=== PATIENT | female | born 1945 | race Caucasian/White ===

== ENCOUNTER 2017-12-30 18:18 | Emergency (ER) | payer MEDICARE, BC ==
[2017-12-30] MEDS ORDERED: Methocarbamol 500 MG TAB ONE (19:38)
== END 2017-12-30 19:41 | disposition home or self-care (01) ==
LOC: SCSER 18:18
DX: M54.32 Sciatica, left side (principal); G20 Parkinson's disease; F17.210 Nicotine dependence, cigarettes, uncomplicated; M81.0 Age-related osteoporosis without current pathological fracture; M85.80 Other specified disorders of bone density and structure, unspecified site; Z79.899 Other long term (current) drug therapy
CPT/HCPCS: 99283

== ENCOUNTER 2018-05-11 07:56 | Outpatient (CLI) | payer MEDICARE, BC ==
--- NOTE | 2018-05-11 13:53 | NM ---
WHOLE BODY BONE SCAN WITH TRIPLE PHASE IMAGING OF THE KNEES: HISTORY: Primary osteoarthritis of the right knee. Instability of right knee joint. Exam requested to rule o ut loose hardware in the right knee. The patient also had a history of breast cancer in 2008. RADIOPHARMACEUTICAL: Technetium 99m MDP 32 millicuries injected intravenously. FINDINGS: No abnormal blood flow or blood pooling is seen in either knee joint. The delayed images demonstrate postop changes of right knee arthroplasty and mildly increased uptake in the left knee, consistent w ith degenerative changes. No evidence of infection or loosening is seen involving the right knee art hroplasty. There are multiple foci of increased uptake in the ribs bilaterally, some of which have a pattern of rib fractures. Increased uptake is seen in the upper thoracic and mid and lower lumbar spine. Trace r excretion through the kidneys is within normal limits. IMPRESSION: 1. No evidence of infection or loosening in the right knee arthroplasty. 2. Findings in some of the ribs are likely due to fractures. Other rib findings may either be due t o trauma or metastatic disease. 3. Findings in the thoracolumbar spine may either be due to degenerative changes or metastases. Dee luation with MRI of the thoracolumbar spine (with and without intravenous contrast) would be helpful. POS: [facility]
== END 2018-05-11 07:57 | disposition home or self-care (01) ==
LOC: NM 07:56
PROVIDERS: ATTEND Emergency Medicine Sports Medicine
DX: M17.11 Unilateral primary osteoarthritis, right knee (principal); M25.361 Other instability, right knee
CPT/HCPCS: 78315; A9503

== ENCOUNTER 2018-06-10 03:31 | Emergency (ER) | payer MEDICARE, BC ==
--- NOTE | 2018-06-10 08:41 | RAD ---
RADIOGRAPH ABDOMEN 2 VIEWS: Date: 06/10/18 Time: 0411 hours HISTORY: 72-year-old female for PEG tube placement check. Parkinson's disease. Tube placed in [place] on 06/09. Now pain at site of insertion. TECHNIQUE: KUB. Second KUB following PEG tube injection of 20 mL Gastrografin. FINDINGS: The bowel gas pattern is normal on the [employer] image. There is a percutaneous gastrostomy tube which en ters the left side of the stomach, loops in the fundus, then loops in the gastroduodenal junction, an d terminates at the junction between the second and third stages of the duodenum. Injected contrast m aterial fills the distal stomach and the duodenum, and the very proximal jejunum at the ligament of T keren. The stomach is decompressed. There is no extravasation. IMPRESSION: 1. Intraluminal position of the percutaneous gastrostomy tube confirmed, with distal tip in the duod enum. 2. No leakage. POS: [facility]
== END 2018-06-10 04:35 | disposition home or self-care (01) ==
LOC: SCSER 03:31
DX: G89.18 Other acute postprocedural pain (principal); G20 Parkinson's disease; F32.9 Major depressive disorder, single episode, unspecified; Z79.899 Other long term (current) drug therapy
CPT/HCPCS: 74019

== ENCOUNTER 2019-07-22 12:34 | Outpatient (CLI) | payer MEDICARE, BC ==
--- NOTE | 2019-07-22 14:23 | MRI ---
MRI BRAIN WITHOUT CONTRAST: INDICATION: Parkinson's disease. FINDINGS: There is enlargement of the ventricular system and moderate global atrophy. No acute territorial inf arction or mass effect. No midline shift. Mild chronic microvascular ischemic disease is present wi thin the cerebral white matter. There is pontine gliosis. IMPRESSION: 1. Ventriculomegaly and moderate global atrophy. 2. No acute territorial infarction or mass effect. 3. Microvascular ischemic disease of the cerebral white matter. POS: [facility]
--- NOTE | 2019-07-22 15:13 | MRI ---
MRI LUMBAR SPINE WITHOUT CONTRAST: INDICATION: Injury with back pain with radiation down the left lower extremity for the last 2-3 weeks. History o f spinal injections. History of a left breast mastectomy in 2007. COMPARISON: None. FINDINGS: There is levoscoliosis of the lumbar spine centered at the L3 vertebral level. There is mild retroli sthesis of L1 on L2, L2 on L3, and L3 on L4. There is anterolisthesis of L5 on S1. Conus is seen to terminate at approximately L1. The visualized aspects of the retroperitoneum and paravertebral soft tissues appear within normal chirinos its. No acute fracture is demonstrated. At the L5-S1 level, there is severe facet joint degenerative change, grade I anterolisthesis, and a b road-based disk bulge. Constellation of findings induces mild right and moderate to severe left neur al foraminal narrowing. At the L4-5 level, there is a broad-based bulge with ligamentum flavum hypertrophy and facet joint de generative change inducing mild central canal narrowing with moderate right and moderate to severe le ft neural foraminal narrowing. At L3-4, there is a broad-based disk bulge with facet hypertrophy and ligamentum flavum hypertrophy i nducing mild central canal narrowing with moderate bilateral neural foraminal narrowing. At L2-3, there is a broad-based bulge with facet hypertrophy and ligamentum flavum hypertrophy and a broad-based disk bulge inducing mild central canal narrowing with moderate right and mild left neural foraminal narrowing. At L1-2, there is a broad-based disk bulge with facet hypertrophy inducing mild bilateral neural fora martha narrowing and mild central canal narrowing. At T12-L1, there is no appreciable central canal or neural foraminal narrowing. IMPRESSION: Prominent multilevel spondylosis of the lumbar spine with multilevel central canal and neural foramin al narrowing as detailed above. POS: [facility]
== END 2019-07-22 12:35 | disposition home or self-care (01) ==
LOC: SCSMRI 12:34
PROVIDERS: ATTEND Physician Assistant
DX: M47.26 Other spondylosis with radiculopathy, lumbar region (principal); M48.061 Spinal stenosis, lumbar region without neurogenic claudication; G20 Parkinson's disease; M47.27 Other spondylosis with radiculopathy, lumbosacral region; M48.07 Spinal stenosis, lumbosacral region; I67.82 Cerebral ischemia
CPT/HCPCS: 70551; 72148

== ENCOUNTER 2019-09-23 08:42 | Outpatient (CLI) | payer MEDICARE, BC ==
--- NOTE | 2019-09-23 11:11 | MRI ---
MRI cervical spine noncontrast: DATE: 09/23/2019 HISTORY: 73-year-old female with cervicalgia COMPARISON: None FINDINGS: Vertebral body heights are maintained. Mild kyphosis. No Chiari I malformation. Mild Modic type I mar row changes of the endplates at C4-5, C5-6, and C6-C7, where there is moderate to severe disc space narrowing, endplate irregularity, and broad-based disc-osteophytic bar complex is that protrude into the anterior aspect of the spinal canal, abutting the spinal cord. Bilateral uncinate process osteophytes encroach upon bilateral neural foramina at multiple levels, but especially at C3-4, C4-5, C5-6, and C6-7. Severe right facet DJD at C3-4 and C7-T1. Moderate to severe right facet DJD at C4-5. Multilevel mild and moderate facet DJD on the left. No major subluxation. Developmentally small caliber spinal canal exacerbated by cervical spondylosis. C1-2: Mild degenerative pseudopannus posterior to odontoid process causes at least mild central spina l canal stenosis. C2-3: Mild to moderate central spinal canal stenosis, entirely on developmental basis. No significant degenerative disc changes. No neural foraminal stenosis. C3-4: Moderate central spinal canal stenosis due to mild ligamentum flavum thickening exacerbating th e developmentally small caliber spinal canal. Minimal broad-based disc-osteophyte complex anteriorly, shallow. Severe right neural foraminal stenosis. Moderate to severe left neural foraminal stenosis. Severe bony hypertrophy of right facet complex. Bone marrow edema of the right facet complex. Edema in the soft tissues around the right facet complex. C4-5: Indentation of the spinal cord by the broad-based shallow disc-osteophytic bar complex. Moderat e to severe central spinal canal stenosis. Severe bilateral neural foraminal stenosis, right worse than left. C5-6: Broad-based disc-osteophytic bar complex indents the spinal cord displacing it posteriorly agai nst thickened ligamentum flavum. Severe central spinal canal stenosis. Severe bilateral neural foraminal stenosis. C6-7: Severe central spinal canal stenosis (less severe than at C5-6). Severe bilateral neural forami nal stenosis. C7-T1: No significant central stenosis. Moderate to severe bilateral neural foraminal stenosis. IMPRESSION: 1. Cervical spondylosis, with moderate-severe degenerative disc disease at 3 levels, and high-grade f acet osteoarthrosis on the right. 2. Facet arthritis involving the right C3-4 facet complex, with bone marrow edema and edema in the so ft tissues immediately around the facet joint. 3. Multilevel severe central spinal canal stenosis and severe bilateral neural foraminal stenosis.
== END 2019-09-23 08:43 | disposition home or self-care (01) ==
LOC: SCSMRI 08:42
PROVIDERS: ATTEND Anesthesiology Pain Medicine
DX: M54.2 Cervicalgia (principal); M50.31 Other cervical disc degeneration, high cervical region; M47.812 Spondylosis without myelopathy or radiculopathy, cervical region; M46.92 Unspecified inflammatory spondylopathy, cervical region; M48.02 Spinal stenosis, cervical region; R60.0 Localized edema
CPT/HCPCS: 72141

== ENCOUNTER 2021-04-05 08:50 | Outpatient (CLI) | payer MEDICARE, BC | END 2021-04-05 08:51 | disposition home or self-care (01) | LOC: BICRAD 08:50 | PROVIDERS: ATTEND Nurse Practitioner Family | DX: M46.1 Sacroiliitis, not elsewhere classified (principal); M25.552 Pain in left hip | CPT/HCPCS: 72170 ==

== ENCOUNTER 2021-09-20 11:04 | Emergency (ER) | payer MEDICARE, BC ==
[2021-09-20 12:28] LABS: #Basophils 0.1 thou/uL (0.0-0.2); #Lymphocytes 0.9 thou/uL (1.20-3.40); #Monocytes 0.4 thou/uL (0.11-0.59); #Neutrophils 3.5 thou/uL (1.40-6.50); %Basophils 1.3 % (0.0-1.0); %Eosinophils 0.6 % (0.0-10.0); %Lymphocytes 18.8 % (21.0-51.0); %Monocytes 7.8 % (0.0-10.0); %Neutrophils 71.5 % (42.0-75.0); Hemoglobin 14.1 g/dL (12.0-16.0); Mean Corpuscular HGB CONC 34.5 g/dL (32.0-36.0); Mean Corpuscular Hemoglobin 35.1 pg (27.0-31.0); Mean Platelet Volume 8.4 fL (7.4-10.4); Platelet Count 136 thou/uL (130-400); RBC Distribution Width 11.6 % (11.5-14.5); Red Blood Cell (RBC) Count 4.01 mill/uL (4.20-5.40); White Blood Cell (WBC) Count 4.8 thou/uL (4.8-10.8)
[2021-09-20 12:59] LABS: ALT (SGPT) 9 U/L (8-55); AST (SGOT) 68 U/L (5-34); Albumin 3.7 g/dL (3.4-4.8); Alkaline Phosphatase 75 U/L (40-110); Anion Gap 15 mmol/L (10-20); BUN (Urea Nitrogen) 15 mg/dL (9.8-20.1); Bilirubin, Total 0.6 mg/dL (0.2-1.2); Calc. Creatinine Clearance 0 mL/min (70-130); Carbon Dioxide 22 mmol/L (23-31); Chloride 103 mmol/L (98-107); Globulin 2.9 g/dL (2.4-3.5); Glucose 90 mg/dL (83-110); Potassium 3.9 mmol/L (3.5-5.1); Protein, Total 6.6 g/dL (5.8-8.1); Sodium 136 mmol/L (136-145)
[2021-09-20] MEDS ORDERED: Albuterol 200 PUFF (6.7GM INHALER) ONE (15:18)
[2021-09-20 15:38] LABS: Bilirubin Negative (Negative); Blood, Urine Negative (Negative); Clarity Clear (Clear); Glucose, Urine (Dipstick) Normal (Negative); Ketone, Urine 10 mg/dL (Negative); Leukocyte 25 Leu/uL (Negative); Nitrite Negative (Negative); Protein, Urine (Dipstick) 20 mg/dL (Neg-Trace); RBC/HPF 0-3 HPF (0-3); Squamous Epithelial 0-3 HPF (0-3); Urobilinogen 3 mg/dL (Less than 2); pH, Urine 6.5 (5.0-9.0)
[2021-09-20 15:39] LABS: Bacteria/HPF 1+ HPF (None Seen); Specific Gravity, Urine 1.045 (1.002-1.036)
[2021-09-20 16:14] LABS: SARS-CoV-2 NAA Rapid Test DETECTED (NotDetected)
== END 2021-09-20 16:40 | disposition home or self-care (01) ==
LOC: ERS 11:04
DX: U07.1 COVID-19 (principal); J12.82 Pneumonia due to coronavirus disease 2019; Z79.899 Other long term (current) drug therapy; E78.5 Hyperlipidemia, unspecified; G20 Parkinson's disease; G47.00 Insomnia, unspecified; M19.90 Unspecified osteoarthritis, unspecified site
CPT/HCPCS: 0240U; 71045; 71275; 80053; 84484; 85025; 93005; 99285; 36415; 81003; 81015

== ENCOUNTER 2021-09-28 14:03 | Observation (INO) | payer MEDICARE, BC ==
[~2021-09-28 14:03] MED LIST: Iopamidol-370 76% 500 ML 1 ML ONE
[2021-09-28 14:49] LABS: #Eosinphils 0.1 thou/uL (0.0-0.7); #Monocytes 0.7 thou/uL (0.11-0.59); #Neutrophils 7.3 thou/uL (1.40-6.50); %Basophils 0.3 % (0.0-1.0); %Eosinophils 0.6 % (0.0-10.0); %Lymphocytes 10.7 % (21.0-51.0); %Monocytes 7.8 % (0.0-10.0); %Neutrophils 80.6 % (42.0-75.0); Hemoglobin 13.2 g/dL (12.0-16.0); Mean Corpuscular HGB CONC 34.4 g/dL (32.0-36.0); Mean Corpuscular Hemoglobin 35.7 pg (27.0-31.0); Mean Platelet Volume 7.8 fL (7.4-10.4); Platelet Count 186 thou/uL (130-400); RBC Distribution Width 11.5 % (11.5-14.5); Red Blood Cell (RBC) Count 3.68 mill/uL (4.20-5.40); White Blood Cell (WBC) Count 9.1 thou/uL (4.8-10.8)
[2021-09-28 15:10] LABS: ALT (SGPT) 7 U/L (8-55); AST (SGOT) 24 U/L (5-34); Albumin 3.5 g/dL (3.4-4.8); Alkaline Phosphatase 97 U/L (40-110); Anion Gap 13 mmol/L (10-20); BUN (Urea Nitrogen) 17 mg/dL (9.8-20.1); Bilirubin, Total 0.7 mg/dL (0.2-1.2); Calc. Creatinine Clearance 0 mL/min (70-130); Calcium 8.7 mg/dL (7.8-10.44); Carbon Dioxide 24 mmol/L (23-31); Chloride 102 mmol/L (98-107); Globulin 3.2 g/dL (2.4-3.5); Glucose 111 mg/dL (83-110); Lipase 12 U/L (8-78); Potassium 4.3 mmol/L (3.5-5.1); Protein, Total 6.7 g/dL (5.8-8.1); Sodium 135 mmol/L (136-145)
[2021-09-28] MEDS ORDERED: Morphine 4 MG/ML VIAL ONE (15:29)
[2021-09-28] MEDS ORDERED: Dexamethasone 10 MG/ML VIAL ONE (15:30)
[2021-09-28] MEDS ORDERED: cefTRIAXone\\ROCEPHIN 2 GM VIAL ONE (16:27)
[2021-09-28] MEDS ORDERED: Bisacodyl 5 MG TAB PO PRN (18:01)
[2021-09-28] MEDS ORDERED: Senokot S 8.6-50 MG TAB PO PRN (18:01)
[2021-09-28] MEDS ORDERED: HYDROcodone/Acetaminophen 10/325 mg Tablet PO PRN (18:01)
[2021-09-28] MEDS ORDERED: Guaifenesin DM 100-10/5 ML UDCUP PO PRN (18:01)
[2021-09-28] MEDS ORDERED: Ondansetron PF 4 MG/2 ML Vial IVP PRN (18:01)
[2021-09-28] MEDS ORDERED: HYDROcodone/Acetaminophen 5/325 mg Tablet PO PRN (18:01)
[2021-09-28] MEDS ORDERED: Enoxaparin Sodium 40 MG/0.4 ML SYRINGE SC SCH (18:15)
[2021-09-28] MEDS ORDERED: Melatonin 3 MG TAB PO PRN (18:34)
[2021-09-28] MEDS ORDERED: Albuterol Sulfate 2.5 mg/3 ml Neb NEB PRN (18:34)
[2021-09-28 18:53] LABS: Troponin I Less than 0.010 ng/mL (< 0.028)
[2021-09-28] MEDS ORDERED: Zinc Sulfate 220 MG CAP PO SCH (19:15)
[2021-09-28] MEDS ORDERED: Ascorbic Acid 500 mg Chewable Tablet PO SCH (19:15)
[2021-09-28] MEDS ORDERED: Cholecalciferol (Vitamin D3) 400 UNITS TAB PO SCH (19:15)
[2021-09-28] MEDS: Famotidine/PF 20 mg/2ml Vial SLOW IVP SCH (19:53)
[2021-09-28] MEDS: Azithromycin 500 MG in Sodium Chloride 0.9% 250 ML 250 ML IVPB SCH (20:07)
[2021-09-28 20:50] VITALS: BMI 26.6
[2021-09-28 21:16] LABS: Troponin I Less than 0.010 ng/mL (< 0.028)
[2021-09-29] MEDS ORDERED: Polyethylene Glycol 3350 17 GM Packet PO PRN (00:49)
[2021-09-29] MEDS: Acetaminophen 325 MG TAB PO PRN ×2 (00:51→19:45)
[2021-09-29] MEDS ORDERED: LEVODOPA PER TUBE SCH (01:15)
[2021-09-29] MEDS ORDERED: CARBIDOPA PER TUBE SCH (01:15)
[2021-09-29 06:15] LABS: ALT (SGPT) Less than 7 U/L (8-55); AST (SGOT) 19 U/L (5-34); Albumin 3.3 g/dL (3.4-4.8); Alkaline Phosphatase 91 U/L (40-110); Anion Gap 10 mmol/L (10-20); BUN (Urea Nitrogen) 15 mg/dL (9.8-20.1); Bilirubin, Total 0.5 mg/dL (0.2-1.2); Calc. Creatinine Clearance 87 mL/min (70-130); Carbon Dioxide 25 mmol/L (23-31); Chloride 104 mmol/L (98-107); Globulin 3.5 g/dL (2.4-3.5); Glucose 121 mg/dL (83-110); Potassium 4.1 mmol/L (3.5-5.1); Protein, Total 6.8 g/dL (5.8-8.1); Sodium 135 mmol/L (136-145)
[2021-09-29] MEDS: Multivitamin W/ Minerals 1 TAB PO SCH (08:35)
[2021-09-29] MEDS: Zinc Sulfate 220 MG CAP PO SCH (08:35)
[2021-09-29] MEDS: Escitalopram Oxalate 20 mg Tablet PO SCH (08:35)
[2021-09-29] MEDS: Pregabalin 25 MG CAP PO SCH (08:35)
[2021-09-29] MEDS: Ascorbic Acid 500 mg Chewable Tablet PO SCH (08:35)
[2021-09-29] MEDS: Calcium Carbonate 600 MG + Vit D TAB PO SCH (08:35)
[2021-09-29] MEDS: Cholecalciferol (Vitamin D3) 400 UNITS TAB PO SCH (08:36)
[2021-09-29] MEDS: Enoxaparin Sodium 40 MG/0.4 ML SYRINGE SC SCH (08:36)
[2021-09-29] MEDS: Dexamethasone 10 MG/ML VIAL SLOW IVP SCH (08:37)
[2021-09-29] MEDS ORDERED: Glucosamine/Msm/Chondroitin A [Glucosamine Chondroitin Msm] PO SCH (09:00)
[2021-09-29] MEDS ORDERED: SAFINAMIDE MESYLATE 100 MG PO SCH (09:00)
[2021-09-29] MEDS ORDERED: traMADol HCl 50 MG TAB PO PRN (09:45)
[2021-09-29] MEDS: Famotidine/PF 20 mg/2ml Vial SLOW IVP SCH ×2 (10:43→20:35)
[2021-09-29] MEDS ORDERED: Naproxen 500 MG TAB PO SCH (14:45)
[2021-09-29] MEDS ORDERED: cefTRIAXone\\ROCEPHIN 2 GM in Sodium Chloride 0.9% 100 ML IVPB SCH (16:00)
[2021-09-29 17:47] LABS: #Lymphocytes 0.8 thou/uL (1.20-3.40); #Monocytes 0.4 thou/uL (0.11-0.59); #Neutrophils 8.4 thou/uL (1.40-6.50); %Basophils 0.1 % (0.0-1.0); %Eosinophils 0.1 % (0.0-10.0); %Monocytes 3.9 % (0.0-10.0); %Neutrophils 87.9 % (42.0-75.0); Hemoglobin 13.9 g/dL (12.0-16.0); Mean Corpuscular HGB CONC 35.1 g/dL (32.0-36.0); Mean Corpuscular Hemoglobin 36.1 pg (27.0-31.0); Mean Platelet Volume 7.9 fL (7.4-10.4); Platelet Count 255 thou/uL (130-400); RBC Distribution Width 11.6 % (11.5-14.5); Red Blood Cell (RBC) Count 3.86 mill/uL (4.20-5.40); White Blood Cell (WBC) Count 9.6 thou/uL (4.8-10.8)
[2021-09-29] MEDS: Azithromycin 500 MG in Sodium Chloride 0.9% 250 ML 250 ML IVPB SCH (19:42)
[2021-09-29] MEDS ORDERED: Albuterol 200 PUFF (6.7GM INHALER) INH PRN (20:00)
[2021-09-29] MEDS: Naproxen 500 MG TAB PO SCH (20:36)
[2021-09-29] MEDS ORDERED: Melatonin 3 MG TAB PO SCH (21:00)
[2021-09-29] MEDS ORDERED: Pregabalin 50 MG CAP PO SCH (21:00)
[2021-09-29] MEDS: Albuterol 200 PUFF (6.7GM INHALER) INH SCH (23:08)
[2021-09-30] MEDS: Albuterol 200 PUFF (6.7GM INHALER) INH SCH ×3 (02:40→10:48)
[2021-09-30 08:22] VITALS: BP 134/63; TEMP 97.9
[2021-09-30] MEDS: Calcium Carbonate 600 MG + Vit D TAB PO SCH (08:46)
[2021-09-30] MEDS: Zinc Sulfate 220 MG CAP PO SCH (08:46)
[2021-09-30] MEDS: Naproxen 500 MG TAB PO SCH (08:46)
[2021-09-30] MEDS: Ascorbic Acid 500 mg Chewable Tablet PO SCH (08:48)
[2021-09-30] MEDS: Pregabalin 25 MG CAP PO SCH (08:48)
[2021-09-30] MEDS: Dexamethasone 10 MG/ML VIAL SLOW IVP SCH (08:49)
[2021-09-30] MEDS: Famotidine/PF 20 mg/2ml Vial SLOW IVP SCH (08:49)
[2021-09-30] MEDS: Multivitamin W/ Minerals 1 TAB PO SCH (08:50)
[2021-09-30] MEDS: Enoxaparin Sodium 40 MG/0.4 ML SYRINGE SC SCH (08:51)
[2021-09-30] MEDS: Cholecalciferol (Vitamin D3) 400 UNITS TAB PO SCH (08:52)
[2021-09-30] MEDS: Acetaminophen 325 MG TAB PO PRN (08:57)
[2021-09-30] MEDS: Escitalopram Oxalate 20 mg Tablet PO SCH (09:37)
[2021-10-01] MEDS ORDERED: FLU VACC QS2021-22(65YR UP)/PF 240 MCG/0.7 ML SYRINGE IM ONE (09:00)
== END 2021-09-30 13:57 | disposition home or self-care (01) ==
LOC: ERS 14:03 → 2SW 17:10
PROVIDERS: ADMIT Internal Medicine; ATTEND Internal Medicine
DX: U07.1 COVID-19 (principal); J12.82 Pneumonia due to coronavirus disease 2019; J96.01 Acute respiratory failure with hypoxia; R07.81 Pleurodynia; G20 Parkinson's disease; R33.8 Other retention of urine; G89.4 Chronic pain syndrome; M25.512 Pain in left shoulder; E78.5 Hyperlipidemia, unspecified; I70.0 Atherosclerosis of aorta; M19.90 Unspecified osteoarthritis, unspecified site; G47.00 Insomnia, unspecified; I08.1 Rheumatic disorders of both mitral and tricuspid valves; Z85.3 Personal history of malignant neoplasm of breast; Z79.899 Other long term (current) drug therapy; Z88.2 Allergy status to sulfonamides
CPT/HCPCS: 36415; 36416; 71045; 71275; 80053; 83605; 83690; 83880; 84484; 85025; 87040; 93005; 93306; 96365; 96367; 96372; 96375; 96376; G0378; J0456; J0696; J1100; J1650; J2270; J3490; J7050; Q9967; S0028

== ENCOUNTER 2021-10-15 09:52 | Outpatient (CLI) | payer MEDICARE, BC ==
[2021-10-15 17:46] LABS: SARS-CoV-2 PCR by NAA Not Detected (NotDetected)
== END 2021-10-15 09:53 | disposition home or self-care (01) ==
LOC: LABBT 09:52
PROVIDERS: ATTEND Family Medicine
DX: Z01.812 Encounter for preprocedural laboratory examination (principal); Z20.822 Contact with and (suspected) exposure to COVID-19
CPT/HCPCS: U0003; U0005

== ENCOUNTER 2021-10-17 10:46 | Outpatient (CLI) | payer MEDICARE, BC | END 2021-10-17 10:47 | disposition home or self-care (01) | PROVIDERS: ATTEND Internal Medicine | DX: G20 Parkinson's disease (principal); R13.10 Dysphagia, unspecified; M47.812 Spondylosis without myelopathy or radiculopathy, cervical region; M43.12 Spondylolisthesis, cervical region | CPT/HCPCS: 74230 ==

== ENCOUNTER 2021-10-29 08:39 | Outpatient (CLI) | payer MEDICARE, BC | END 2021-10-29 08:40 | disposition home or self-care (01) | LOC: MRI 08:39 | PROVIDERS: ATTEND Nurse Practitioner Family | DX: M54.6 Pain in thoracic spine (principal); M51.24 Other intervertebral disc displacement, thoracic region; M43.8X4 Other specified deforming dorsopathies, thoracic region; Z98.890 Other specified postprocedural states | CPT/HCPCS: 72146 ==

== ENCOUNTER 2021-12-20 10:16 | Emergency (ER) | payer OTHER, MEDICARE, BC ==
[2021-12-20 11:16] LABS: #Eosinphils 0.1 thou/uL (0.0-0.7); #Lymphocytes 0.8 thou/uL (1.20-3.40); #Monocytes 0.3 thou/uL (0.11-0.59); #Neutrophils 3.3 thou/uL (1.40-6.50); %Basophils 0.5 % (0.0-1.0); %Lymphocytes 17.8 % (21.0-51.0); %Neutrophils 72.7 % (42.0-75.0); Hemoglobin 12.3 g/dL (12.0-16.0); Mean Corpuscular HGB CONC 32.2 g/dL (32.0-36.0); Mean Platelet Volume 7.8 fL (7.4-10.4); Platelet Count 163 thou/uL (130-400); RBC Distribution Width 11.7 % (11.5-14.5); Red Blood Cell (RBC) Count 3.51 mill/uL (4.20-5.40); White Blood Cell (WBC) Count 4.6 thou/uL (4.8-10.8)
[2021-12-20] MEDS ORDERED: Acetaminophen 500 MG TAB ONE ×2 (11:26→11:28)
[2021-12-20 11:30] LABS: ALT (SGPT) Less than 7 U/L (8-55); AST (SGOT) 20 U/L (5-34); Alkaline Phosphatase 64 U/L (40-110); Anion Gap 16 mmol/L (10-20); BUN (Urea Nitrogen) 16 mg/dL (9.8-20.1); Bilirubin, Total 0.4 mg/dL (0.2-1.2); Calc. Creatinine Clearance 0 mL/min (70-130); Calcium 8.9 mg/dL (7.8-10.44); Carbon Dioxide 24 mmol/L (23-31); Chloride 105 mmol/L (98-107); Globulin 2.7 g/dL (2.4-3.5); Glucose 81 mg/dL (83-110); Potassium 3.7 mmol/L (3.5-5.1); Protein, Total 6.7 g/dL (5.8-8.1); Sodium 141 mmol/L (136-145)
[2021-12-20 11:50] LABS: Band 1 % (5-11); Eosinophils 5 % (0-10); Lymphocytes 22 % (21-51); MDiff Complete? YES; Macrocytosis SLIGHT = 6-15 cells (100X) (0-5/hpf); Monocytes 6 % (0-10); Neutrophil 65 % (42-75); Platelet Morphology Comment Appears Adequate; Polychromasia SLIGHT = 2-3 cells (100X) (0-2/hpf)
[2021-12-20 12:38] LABS: Bilirubin Negative (Negative); Blood, Urine Negative (Negative); Clarity Clear (Clear); Glucose, Urine (Dipstick) Normal (Negative); Ketone, Urine Negative (Negative); Leukocyte Negative Leu/uL (Negative); Nitrite Negative (Negative); Protein, Urine (Dipstick) Negative (Neg-Trace); Specific Gravity, Urine 1.014 (1.002-1.036); Urobilinogen Normal mg/dL (Less than 2)
== END 2021-12-20 13:15 | disposition home or self-care (01) ==
LOC: ERS 10:16
DX: S09.90XA Unspecified injury of head, initial encounter (principal); E78.5 Hyperlipidemia, unspecified; M19.90 Unspecified osteoarthritis, unspecified site; G47.00 Insomnia, unspecified; G20 Parkinson's disease; M85.80 Other specified disorders of bone density and structure, unspecified site; W01.198A Fall on same level from slipping, tripping and stumbling with subsequent striking against other object, initial encounter; Z79.899 Other long term (current) drug therapy
CPT/HCPCS: 36415; 70450; 71045; 72125; 80053; 81003; 84484; 85025; 93005

== ENCOUNTER 2022-08-19 11:58 | Emergency (ER) | payer MEDICARE, BC | END 2022-08-19 14:10 | disposition home or self-care (01) | LOC: ERS 11:58 | DX: S00.03XA Contusion of scalp, initial encounter (principal); E78.5 Hyperlipidemia, unspecified; G47.00 Insomnia, unspecified; G20 Parkinson's disease; M19.90 Unspecified osteoarthritis, unspecified site; W18.09XA Striking against other object with subsequent fall, initial encounter; Z85.3 Personal history of malignant neoplasm of breast; Z79.899 Other long term (current) drug therapy | CPT/HCPCS: 70450; 72125 ==

== ENCOUNTER 2022-09-14 17:43 | Inpatient (IN) | payer MEDICARE, BC ==
[2022-09-14] MEDS ORDERED: Ketorolac Tromethamine 30 MG/ML VIAL ONE (18:18)
[2022-09-14] MEDS ORDERED: Ondansetron PF 4 MG/2 ML Vial ONE (18:18)
[2022-09-14 18:35] LABS: #Lymphocytes 0.8 thou/uL (1.20-3.40); #Monocytes 0.3 thou/uL (0.11-0.59); #Neutrophils 6.7 thou/uL (1.40-6.50); %Basophils 0.4 % (0.0-1.0); %Eosinophils 0.6 % (0.0-10.0); %Lymphocytes 9.6 % (21.0-51.0); %Monocytes 3.7 % (0.0-10.0); %Neutrophils 85.7 % (42.0-75.0); Hemoglobin 12.3 g/dL (12.0-16.0); Mean Corpuscular HGB CONC 33.8 g/dL (32.0-36.0); Mean Corpuscular Hemoglobin 36.8 pg (27.0-31.0); Mean Platelet Volume 8.1 fL (7.4-10.4); Platelet Count 166 10x3/uL (130-400); RBC Distribution Width 11.7 % (11.5-14.5); Red Blood Cell (RBC) Count 3.34 mill/uL (4.20-5.40); White Blood Cell (WBC) Count 7.8 10x3/uL (4.8-10.8)
[2022-09-14 18:47] LABS: ALT (SGPT) 7 U/L (8-55); AST (SGOT) 26 U/L (5-34); Albumin 4.4 g/dL (3.4-4.8); Alkaline Phosphatase 76 U/L (40-110); Anion Gap 13 mmol/L (10-20); BUN (Urea Nitrogen) 12 mg/dL (9.8-20.1); Bilirubin, Total 0.9 mg/dL (0.2-1.2); Calc. Creatinine Clearance 0 mL/min (70-130); Calcium 9.8 mg/dL (7.8-10.44); Carbon Dioxide 31 mmol/L (23-31); Chloride 100 mmol/L (98-107); Estimated GFR 78; Glucose 121 mg/dL (83-110); Lipase 4 U/L (8-78); Potassium 3.9 mmol/L (3.5-5.1); Protein, Total 7.4 g/dL (5.8-8.1); Sodium 140 mmol/L (136-145)
[2022-09-14 18:57] LABS: MDiff Complete? YES; Macrocytosis SLIGHT = 6-15 cells (100X) (0-5/hpf); Platelet Morphology Comment Appears Adequate
[2022-09-14] MEDS ORDERED: HYDROcodone/Acetaminophen 5/325 mg Tablet PO PRN (21:54)
[2022-09-14] MEDS ORDERED: Acetaminophen 325 MG TAB PO PRN (21:54)
[2022-09-14] MEDS ORDERED: Ondansetron ODT 4 MG TAB PO PRN (21:54)
[2022-09-14] MEDS ORDERED: Hydrochlorothiazide 25 MG TAB PO PRN (21:56)
[2022-09-14] MEDS ORDERED: Enoxaparin Sodium 40 MG/0.4 ML SYRINGE SC SCH (22:00)
[2022-09-14] MEDS ORDERED: Loratadine 10 MG TAB PO PRN (22:05)
[2022-09-14] MEDS ORDERED: Artificial Tear Sol 15 ML BOT EA EYE PRN (22:06)
[2022-09-14 22:47] VITALS: BMI 24.9
[2022-09-14] MEDS: D5 1/2 NS w/20 mEq KCL 1,000 ML IV SCH (22:52)
[2022-09-15] MEDS ORDERED: LEVODOPA PER TUBE SCH (04:00)
[2022-09-15] MEDS ORDERED: CARBIDOPA PER TUBE SCH (04:00)
[2022-09-15 06:25] LABS: #Eosinphils 0.1 thou/uL (0.0-0.7); #Lymphocytes 1.7 thou/uL (1.20-3.40); #Monocytes 0.4 thou/uL (0.11-0.59); %Basophils 0.5 % (0.0-1.0); %Eosinophils 1.6 % (0.0-10.0); %Lymphocytes 32.5 % (21.0-51.0); %Monocytes 7.2 % (0.0-10.0); %Neutrophils 58.2 % (42.0-75.0); Hemoglobin 10.8 g/dL (12.0-16.0); Mean Corpuscular HGB CONC 33.3 g/dL (32.0-36.0); Mean Corpuscular Hemoglobin 36.3 pg (27.0-31.0); Mean Platelet Volume 8.2 fL (7.4-10.4); Platelet Count 154 10x3/uL (130-400); RBC Distribution Width 11.6 % (11.5-14.5); Red Blood Cell (RBC) Count 2.97 mill/uL (4.20-5.40); White Blood Cell (WBC) Count 5.1 10x3/uL (4.8-10.8)
[2022-09-15 06:41] LABS: Anion Gap 11 mmol/L (10-20); BUN (Urea Nitrogen) 12 mg/dL (9.8-20.1); Calc. Creatinine Clearance 72 mL/min (70-130); Calcium 8.5 mg/dL (7.8-10.44); Carbon Dioxide 25 mmol/L (23-31); Chloride 106 mmol/L (98-107); Estimated GFR 91; Glucose 95 mg/dL (83-110); Potassium 3.8 mmol/L (3.5-5.1); Sodium 138 mmol/L (136-145)
[2022-09-15 06:44] LABS: SARS-CoV-2 NAA Rapid Test Not Detected (NotDetected)
[2022-09-15] MEDS: Calcium Carbonate + Vit D 250 MG TAB PO SCH (08:20)
[2022-09-15] MEDS: Escitalopram Oxalate 20 mg Tablet PO SCH (08:21)
[2022-09-15] MEDS: Famotidine 20 MG TAB PO SCH ×2 (08:21→21:00)
[2022-09-15] MEDS: Pregabalin 25 MG CAP PO SCH (08:21)
[2022-09-15] MEDS: D5 1/2 NS w/20 mEq KCL 1,000 ML IV SCH (13:12)
[2022-09-15 20:06] VITALS: TEMP 98.3
[2022-09-15] MEDS ORDERED: diphenhydrAMINE 50 MG CAP PO SCH (21:00)
[2022-09-15] MEDS ORDERED: Pregabalin 50 MG CAP PO SCH (21:00)
[2022-09-15] MEDS ORDERED: Melatonin 3 MG TAB PO SCH (21:00)
[2022-09-15] MEDS: Metamucil PACK PO SCH (21:10)
[2022-09-16 06:45] LABS: #Eosinphils 0.1 thou/uL (0.0-0.7); #Lymphocytes 1.3 thou/uL (1.20-3.40); #Monocytes 0.4 thou/uL (0.11-0.59); #Neutrophils 2.1 thou/uL (1.40-6.50); %Basophils 0.4 % (0.0-1.0); %Eosinophils 1.9 % (0.0-10.0); %Neutrophils 54.8 % (42.0-75.0); Hemoglobin 11.4 g/dL (12.0-16.0); Mean Corpuscular HGB CONC 33.3 g/dL (32.0-36.0); Mean Corpuscular Hemoglobin 36.5 pg (27.0-31.0); Mean Platelet Volume 7.9 fL (7.4-10.4); Platelet Count 144 10x3/uL (130-400); RBC Distribution Width 11.7 % (11.5-14.5); Red Blood Cell (RBC) Count 3.11 mill/uL (4.20-5.40); White Blood Cell (WBC) Count 3.9 10x3/uL (4.8-10.8)
[2022-09-16] MEDS: Pregabalin 25 MG CAP PO SCH (08:27)
[2022-09-16] MEDS: Calcium Carbonate + Vit D 250 MG TAB PO SCH (08:27)
[2022-09-16] MEDS: Escitalopram Oxalate 20 mg Tablet PO SCH (08:28)
[2022-09-16] MEDS: Famotidine 20 MG TAB PO SCH (08:28)
[2022-09-16] MEDS: Metamucil PACK PO SCH (08:29)
[2022-09-16 08:37] VITALS: BP 145/83
[2022-09-16] MEDS ORDERED: SAFINAMIDE MESYLATE 100 MG PO SCH (09:00)
[2022-09-16] MEDS ORDERED: Multivit, Therapeutic 1 TAB PO SCH (09:00)
[2022-09-16] MEDS ORDERED: Estradiol 0.01% Vaginal Cream 42.5 gm Tube VAG SCH (09:00)
== END 2022-09-16 12:42 | disposition home or self-care (01) | DRG 863 ==
LOC: ERS 17:43 → T4-B 20:29 → OBSVTOIN 09-15 11:44
PROVIDERS: ADMIT Family Medicine; ATTEND Family Medicine
DX: T81.49XA Infection following a procedure, other surgical site, initial encounter (principal); L03.311 Cellulitis of abdominal wall; K56.609 Unspecified intestinal obstruction, unspecified as to partial versus complete obstruction; Z20.822 Contact with and (suspected) exposure to COVID-19; G20 Parkinson's disease; Y83.8 Other surgical procedures as the cause of abnormal reaction of the patient, or of later complication, without mention of misadventure at the time of the procedure; M19.90 Unspecified osteoarthritis, unspecified site; G89.29 Other chronic pain; Z93.4 Other artificial openings of gastrointestinal tract status; Z85.3 Personal history of malignant neoplasm of breast; Z88.2 Allergy status to sulfonamides; Z79.899 Other long term (current) drug therapy
CPT/HCPCS: 36415; 74177; 80048; 80053; 83690; 85025; 87070; 87205; 87324; 87449; 96374; 96375; J1650; J1885; J1956; J2405; J3480; Q9967; U0002

== ENCOUNTER 2022-10-03 21:46 | Emergency (ER) | payer MEDICARE, BC ==
[2022-10-03] MEDS ORDERED: HYDROcodone/Acetaminophen 10/325 mg Tablet ONE (22:47)
== END 2022-10-04 01:16 | disposition home or self-care (01) ==
LOC: ERS 21:46
DX: M79.601 Pain in right arm (principal); E78.5 Hyperlipidemia, unspecified; W18.30XA Fall on same level, unspecified, initial encounter

== ENCOUNTER 2022-12-28 13:16 | Inpatient (IN) | payer MEDICARE, BC ==
[2022-12-28 14:02] LABS: #Eosinphils 0.1 thou/uL (0.0-0.7); #Lymphocytes 0.9 thou/uL (1.20-3.40); #Monocytes 0.6 thou/uL (0.11-0.59); #Neutrophils 10.1 thou/uL (1.40-6.50); %Basophils 0.2 % (0.0-1.0); %Eosinophils 0.6 % (0.0-10.0); %Lymphocytes 7.8 % (21.0-51.0); %Monocytes 4.8 % (0.0-10.0); %Neutrophils 86.5 % (42.0-75.0); Hemoglobin 12.6 g/dL (12.0-16.0); Mean Corpuscular HGB CONC 33.7 g/dL (32.0-36.0); Mean Corpuscular Hemoglobin 36.1 pg (27.0-31.0); Mean Platelet Volume 8.1 fL (7.4-10.4); Platelet Count 196 10x3/uL (130-400); RBC Distribution Width 11.5 % (11.5-14.5); Red Blood Cell (RBC) Count 3.49 mill/uL (4.20-5.40); White Blood Cell (WBC) Count 11.7 10x3/uL (4.8-10.8)
[2022-12-28 14:14] LABS: ALT (SGPT) Less than 7 U/L (8-55); AST (SGOT) 20 U/L (5-34); Albumin 4.2 g/dL (3.4-4.8); Alkaline Phosphatase 79 U/L (40-110); Anion Gap 13 mmol/L (10-20); BUN (Urea Nitrogen) 17 mg/dL (9.8-20.1); Bilirubin, Total 0.6 mg/dL (0.2-1.2); Calc. Creatinine Clearance 0 mL/min (70-130); Calcium 9.3 mg/dL (7.8-10.44); Carbon Dioxide 25 mmol/L (23-31); Chloride 102 mmol/L (98-107); Estimated GFR 84; Globulin 3.3 g/dL (2.4-3.5); Glucose 95 mg/dL (83-110); Protein, Total 7.5 g/dL (5.8-8.1); Sodium 136 mmol/L (136-145)
[2022-12-28 14:20] LABS: MDiff Complete? YES; Macrocytosis SLIGHT = 6-15 cells (100X) (0-5/hpf); Platelet Morphology Comment Appears Adequate
[2022-12-28] MEDS ORDERED: Acetaminophen 500 MG TAB ONE (14:58)
[2022-12-28] MEDS ORDERED: Fentanyl 100 MCG/2 ML VIAL ONE (14:58)
[2022-12-28] MEDS ORDERED: Bupivacaine 0.25% 10 ML VIAL ONE (14:58)
[2022-12-28] MEDS ORDERED: Ondansetron ODT 4 MG TAB PO PRN (16:10)
[2022-12-28] MEDS ORDERED: Ondansetron PF 4 MG/2 ML Vial IVP PRN (16:10)
[2022-12-28] MEDS ORDERED: Sodium Chloride 0.9% 1,000 ML IV SCH (16:15)
[2022-12-28 18:08] VITALS: BMI 24.6
[2022-12-28] MEDS ORDERED: Vancomycin 1.5 GRAM/300 ML BAG 1.5 GM in Premix Bag 1 BAG IVPB SCH (19:30)
[2022-12-28] MEDS ORDERED: Cefepime 1 GM in Sodium Chloride 0.9% 100 ML IVPB SCH (20:00)
[2022-12-28] MEDS ORDERED: Cefepime 2 GM in Sodium Chloride 0.9% 100 ML IVPB SCH (21:00)
[2022-12-28] MEDS ORDERED: Vancomycin 1 GM in Premix Bag 1 BAG IVPB SCH (21:00)
[2022-12-28] MEDS: Cefepime 1 GM in Sodium Chloride 0.9% 100 ML IVPB SCH (21:58)
[2022-12-28] MEDS: Acetaminophen 325 MG TAB PO PRN (23:31)
[2022-12-29] MEDS: Acetaminophen 325 MG TAB PO PRN ×2 (06:48→20:44)
[2022-12-29 08:21] LABS: #Eosinphils 0.1 thou/uL (0.0-0.7); #Lymphocytes 0.8 thou/uL (1.20-3.40); #Monocytes 0.6 thou/uL (0.11-0.59); #Neutrophils 7.5 thou/uL (1.40-6.50); %Basophils 0.2 % (0.0-1.0); %Eosinophils 0.8 % (0.0-10.0); %Monocytes 6.7 % (0.0-10.0); %Neutrophils 83.4 % (42.0-75.0); Hemoglobin 10.8 g/dL (12.0-16.0); Mean Corpuscular HGB CONC 33.5 g/dL (32.0-36.0); Mean Platelet Volume 8.4 fL (7.4-10.4); Platelet Count 148 10x3/uL (130-400); RBC Distribution Width 11.5 % (11.5-14.5)
[2022-12-29 08:45] LABS: Anion Gap 13 mmol/L (10-20); BUN (Urea Nitrogen) 11 mg/dL (9.8-20.1); Calc. Creatinine Clearance 79 mL/min (70-130); Calcium 8.6 mg/dL (7.8-10.44); Carbon Dioxide 23 mmol/L (23-31); Chloride 103 mmol/L (98-107); Estimated GFR 93; Glucose 113 mg/dL (83-110); Potassium 3.7 mmol/L (3.5-5.1); Sodium 135 mmol/L (136-145)
[2022-12-29] MEDS: Cefepime 1 GM in Sodium Chloride 0.9% 100 ML IVPB SCH ×2 (09:54→22:27)
[2022-12-29] MEDS ORDERED: Iopamidol-370 76% 500 ML 1 ML ONE (10:44)
[2022-12-29] MEDS ORDERED: CEFAZOLIN 1 GM in Sodium Chloride 0.9% 100 ML IVPB SCH (12:30)
[2022-12-29] MEDS ORDERED: diphenhydrAMINE 50 MG CAP PO PRN (16:37)
[2022-12-29] MEDS ORDERED: Hydrochlorothiazide 25 MG TAB PO PRN ×2 (16:37→17:17)
[2022-12-29] MEDS ORDERED: Diphenoxylate HCl/Atropine Tablet PO PRN (16:37)
[2022-12-29] MEDS ORDERED: Loratadine 10 MG TAB PO PRN (17:13)
[2022-12-29] MEDS ORDERED: Artificial Tear Sol 15 ML BOT EA EYE PRN (17:19)
[2022-12-29] MEDS ORDERED: Melatonin 3 MG TAB PO PRN (17:23)
[2022-12-29] MEDS: Vancomycin 1.5 GRAM/300 ML BAG 1.5 GM in Premix Bag 1 BAG IVPB SCH (20:35)
[2022-12-29] MEDS: Metamucil PACK PO SCH (20:36)
[2022-12-29] MEDS: Pregabalin 50 MG CAP PO SCH (20:36)
[2022-12-29] MEDS: Loperamide HCl 2 MG CAP PO SCH (20:36)
[2022-12-30 07:08] LABS: #Eosinphils 0.1 thou/uL (0.0-0.7); #Lymphocytes 1.4 thou/uL (1.20-3.40); #Monocytes 0.5 thou/uL (0.11-0.59); #Neutrophils 7.9 thou/uL (1.40-6.50); %Basophils 0.3 % (0.0-1.0); %Eosinophils 1.3 % (0.0-10.0); %Lymphocytes 13.7 % (21.0-51.0); %Neutrophils 79.7 % (42.0-75.0); Hemoglobin 12.9 g/dL (12.0-16.0); Mean Corpuscular HGB CONC 32.5 g/dL (32.0-36.0); Mean Corpuscular Hemoglobin 35.1 pg (27.0-31.0); Mean Platelet Volume 8.7 fL (7.4-10.4); Platelet Count 204 10x3/uL (130-400); RBC Distribution Width 11.5 % (11.5-14.5); Red Blood Cell (RBC) Count 3.68 mill/uL (4.20-5.40); White Blood Cell (WBC) Count 9.9 10x3/uL (4.8-10.8)
[2022-12-30 07:31] LABS: Anion Gap 14 mmol/L (10-20); BUN (Urea Nitrogen) 11 mg/dL (9.8-20.1); Calc. Creatinine Clearance 73 mL/min (70-130); Calcium 9.6 mg/dL (7.8-10.44); Carbon Dioxide 24 mmol/L (23-31); Chloride 104 mmol/L (98-107); Estimated GFR 91; Glucose 102 mg/dL (83-110); Sodium 138 mmol/L (136-145)
[2022-12-30] MEDS ORDERED: SAFINAMIDE MESYLATE 100 MG PO SCH (09:00)
[2022-12-30] MEDS ORDERED: fentaNYL PF 100 MCG/2 ML SYRINGE ONE ×2 (11:42→13:13)
[2022-12-30] MEDS: Cefepime 1 GM in Sodium Chloride 0.9% 100 ML IVPB SCH ×2 (12:06→22:26)
[2022-12-30] MEDS ORDERED: Sodium Chloride 0.9% 100 ML ONE (12:32)
[2022-12-30] MEDS ORDERED: CEFAZOLIN 1 GM VIAL ONE (12:32)
[2022-12-30] MEDS ORDERED: PROPOFOL 200 MG/20 ML VIAL ONE (13:00)
[2022-12-30] MEDS ORDERED: PHENYLEPHRINE-NS 100 MCG/ML 10 ML SYRINGE ONE (13:00)
[2022-12-30] MEDS ORDERED: ePHEDrine 50 MG/ML VIAL ONE (13:00)
[2022-12-30] MEDS ORDERED: Dexamethasone 20 MG/5 ML VIAL ONE (13:00)
[2022-12-30] MEDS ORDERED: Lidocaine 1% PF 5 ML VIAL ONE (13:00)
[2022-12-30] MEDS ORDERED: Ondansetron PF 4 MG/2 ML Vial ONE (13:00)
[2022-12-30] MEDS ORDERED: Ondansetron HCl/PF 4 MG/2 ML Vial IVP PRN (14:11)
[2022-12-30] MEDS: Estradiol 0.01% Vaginal Cream 42.5 gm Tube VAG SCH (15:07)
[2022-12-30] MEDS: Loperamide HCl 2 MG CAP PO SCH ×2 (15:07→21:15)
[2022-12-30] MEDS: Calcium Carbonate 600 MG + Vit D TAB PO SCH (15:07)
[2022-12-30] MEDS: Escitalopram Oxalate 20 mg Tablet PO SCH (15:07)
[2022-12-30] MEDS: Metamucil PACK PO SCH ×3 (15:08→21:19)
[2022-12-30] MEDS: Pregabalin 25 MG CAP PO SCH (15:08)
[2022-12-30] MEDS: Multivitamin W/ Minerals 1 TAB PO SCH (15:08)
[2022-12-30 19:43] LABS: Vancomycin, Trough 7.7 ug/mL
[2022-12-30] MEDS: Vancomycin 1.5 GRAM/300 ML BAG 1.5 GM in Premix Bag 1 BAG IVPB SCH (20:50)
[2022-12-30] MEDS: Vancomycin 1 GM in Premix Bag 1 BAG IVPB SCH (21:14)
[2022-12-30] MEDS: Pregabalin 50 MG CAP PO SCH (21:15)
[2022-12-30] MEDS: Acetaminophen 325 MG TAB PO PRN (21:17)
[2022-12-31 07:34] LABS: Anion Gap 13 mmol/L (10-20); BUN (Urea Nitrogen) 20 mg/dL (9.8-20.1); Calc. Creatinine Clearance 66 mL/min (70-130); Calcium 9.2 mg/dL (7.8-10.44); Carbon Dioxide 23 mmol/L (23-31); Chloride 103 mmol/L (98-107); Estimated GFR 86; Glucose 137 mg/dL (83-110); Potassium 4.5 mmol/L (3.5-5.1); Sodium 134 mmol/L (136-145)
[2022-12-31 07:40] LABS: #Lymphocytes 0.5 thou/uL (1.20-3.40); #Monocytes 0.3 thou/uL (0.11-0.59); #Neutrophils 9.6 thou/uL (1.40-6.50); %Eosinophils 0.2 % (0.0-10.0); %Lymphocytes 5.1 % (21.0-51.0); %Monocytes 3.2 % (0.0-10.0); %Neutrophils 91.6 % (42.0-75.0); Hemoglobin 11.5 g/dL (12.0-16.0); Mean Corpuscular HGB CONC 32.8 g/dL (32.0-36.0); Mean Corpuscular Hemoglobin 35.7 pg (27.0-31.0); Mean Platelet Volume 8.5 fL (7.4-10.4); Platelet Count 198 10x3/uL (130-400); RBC Distribution Width 11.4 % (11.5-14.5); Red Blood Cell (RBC) Count 3.21 mill/uL (4.20-5.40); White Blood Cell (WBC) Count 10.5 10x3/uL (4.8-10.8)
[2022-12-31] MEDS: Pregabalin 25 MG CAP PO SCH (08:33)
[2022-12-31] MEDS: Multivitamin W/ Minerals 1 TAB PO SCH (08:34)
[2022-12-31] MEDS: Cefepime 1 GM in Sodium Chloride 0.9% 100 ML IVPB SCH ×2 (08:35→20:57)
[2022-12-31] MEDS: Calcium Carbonate 600 MG + Vit D TAB PO SCH (08:35)
[2022-12-31] MEDS: Loperamide HCl 2 MG CAP PO SCH ×2 (08:36→20:58)
[2022-12-31] MEDS: Metamucil PACK PO SCH ×2 (08:36→20:57)
[2022-12-31] MEDS: Escitalopram Oxalate 20 mg Tablet PO SCH (08:36)
[2022-12-31] MEDS: Vancomycin 1 GM in Premix Bag 1 BAG IVPB SCH ×2 (08:37→20:59)
[2022-12-31] MEDS: LEVODOPA PER TUBE SCH (08:38)
[2022-12-31] MEDS: CARBIDOPA PER TUBE SCH (08:38)
[2022-12-31] MEDS ORDERED: Morphine 2 MG/ML VIAL SLOW IVP PRN (10:31)
[2022-12-31] MEDS ORDERED: HYDROcodone/Acetaminophen 5/325 mg Tablet PO PRN (10:31)
[2022-12-31] MEDS ORDERED: Morphine 2 MG/ML VIAL SLOW IVP SCH (10:45)
[2022-12-31] MEDS: Pregabalin 50 MG CAP PO SCH (20:57)
[2023-01-01 08:28] LABS: Vancomycin, Trough 20.5 ug/mL
[2023-01-01] MEDS: Multivitamin W/ Minerals 1 TAB PO SCH (08:36)
[2023-01-01] MEDS: Escitalopram Oxalate 20 mg Tablet PO SCH (08:36)
[2023-01-01] MEDS: Calcium Carbonate 600 MG + Vit D TAB PO SCH (08:36)
[2023-01-01] MEDS: Pregabalin 25 MG CAP PO SCH (08:36)
[2023-01-01] MEDS: Cefepime 1 GM in Sodium Chloride 0.9% 100 ML IVPB SCH ×2 (08:36→20:18)
[2023-01-01] MEDS: Loperamide HCl 2 MG CAP PO SCH ×2 (08:37→20:19)
[2023-01-01] MEDS: Metamucil PACK PO SCH ×2 (08:37→20:19)
[2023-01-01] MEDS: CARBIDOPA PER TUBE SCH (08:46)
[2023-01-01] MEDS: LEVODOPA PER TUBE SCH (08:46)
[2023-01-01] MEDS: Vancomycin 1 GM in Premix Bag 1 BAG IVPB SCH ×2 (10:06→21:05)
[2023-01-01] MEDS ORDERED: traMADol HCl 50 MG TAB PO PRN (10:10)
[2023-01-01] MEDS: Estradiol 0.01% Vaginal Cream 42.5 gm Tube VAG SCH (10:27)
[2023-01-01] MEDS: Pregabalin 50 MG CAP PO SCH (20:19)
[2023-01-01] MEDS ORDERED: Estradiol 0.01% Vaginal Cream 42.5 gm Tube VAG SCH (21:00)
[2023-01-02] MEDS: Escitalopram Oxalate 20 mg Tablet PO SCH (09:08)
[2023-01-02] MEDS: Pregabalin 25 MG CAP PO SCH (09:08)
[2023-01-02] MEDS: Multivitamin W/ Minerals 1 TAB PO SCH (09:08)
[2023-01-02] MEDS: Metamucil PACK PO SCH ×2 (09:08→22:22)
[2023-01-02] MEDS: Loperamide HCl 2 MG CAP PO SCH ×2 (09:09→22:22)
[2023-01-02] MEDS: Cefepime 1 GM in Sodium Chloride 0.9% 100 ML IVPB SCH (09:09)
[2023-01-02] MEDS: Calcium Carbonate 600 MG + Vit D TAB PO SCH (09:09)
[2023-01-02] MEDS: LEVODOPA PER TUBE SCH (09:41)
[2023-01-02] MEDS: Acetaminophen 325 MG TAB PO PRN ×2 (09:41→20:56)
[2023-01-02] MEDS: CARBIDOPA PER TUBE SCH (09:41)
[2023-01-02 09:56] LABS: Vancomycin, Trough 19.6 ug/mL
[2023-01-02] MEDS: Vancomycin 1 GM in Premix Bag 1 BAG IVPB SCH (11:40)
[2023-01-02] MEDS: Cephalexin 250 MG CAP PO SCH ×2 (13:36→20:55)
[2023-01-02] MEDS: Clindamycin 150 MG CAP PO SCH ×2 (13:36→20:55)
[2023-01-02] MEDS: Pregabalin 50 MG CAP PO SCH (20:55)
[2023-01-02] MEDS ORDERED: Saccharomyces boulardii 250 MG CAP PO SCH (21:00)
[2023-01-03] MEDS: Clindamycin 150 MG CAP PO SCH ×2 (05:35→14:32)
[2023-01-03] MEDS: Cephalexin 250 MG CAP PO SCH ×2 (05:35→14:32)
[2023-01-03] MEDS: Loperamide HCl 2 MG CAP PO SCH (08:35)
[2023-01-03] MEDS: Multivitamin W/ Minerals 1 TAB PO SCH (08:35)
[2023-01-03] MEDS: Escitalopram Oxalate 20 mg Tablet PO SCH (08:36)
[2023-01-03] MEDS: LEVODOPA PER TUBE SCH (08:36)
[2023-01-03] MEDS: CARBIDOPA PER TUBE SCH (08:36)
[2023-01-03] MEDS: Calcium Carbonate 600 MG + Vit D TAB PO SCH (08:36)
[2023-01-03] MEDS: Metamucil PACK PO SCH (08:36)
[2023-01-03 09:03] VITALS: BP 145/72; TEMP 98.2
[2023-01-03] MEDS: Pregabalin 25 MG CAP PO SCH (10:44)
== END 2023-01-03 16:01 | disposition home health service (06) | DRG 603 ==
LOC: ERS 13:16 → INTOOBSV 16:08 → T4-A 16:08 → OBSVTOIN 12-30 11:16
PROVIDERS: ADMIT Internal Medicine; ATTEND Internal Medicine
PROC: 0J9P0ZZ Drainage of Left Lower Leg Subcutaneous Tissue and Fascia, Open Approach (ICD-10-PCS; principal; 2022-12-30)
DX: L03.116 Cellulitis of left lower limb (principal); E87.1 Hypo-osmolality and hyponatremia; Z20.822 Contact with and (suspected) exposure to COVID-19; G20 Parkinson's disease; E78.5 Hyperlipidemia, unspecified; M19.90 Unspecified osteoarthritis, unspecified site; G89.4 Chronic pain syndrome; K52.9 Noninfective gastroenteritis and colitis, unspecified; F32.A Depression, unspecified; F41.9 Anxiety disorder, unspecified; Z88.1 Allergy status to other antibiotic agents; Z88.2 Allergy status to sulfonamides; Z85.3 Personal history of malignant neoplasm of breast; Z90.12 Acquired absence of left breast and nipple; Z98.1 Arthrodesis status; Z79.899 Other long term (current) drug therapy; Z93.4 Other artificial openings of gastrointestinal tract status
CPT/HCPCS: 20610; 36415; 71045; 80048; 80053; 80202; 83605; 84484; 85025; 85652; 86140; 87040; 93005; 96374; 96375; 96376; 97139; G0378; J0690; J0692; J1100; J2405; J2704; J3010; J3370; J3370-JW; J3490; J7050; Q9967; S0020; U0003; U0005

== ENCOUNTER 2023-01-09 13:34 | Emergency (ER) | payer MEDICARE, BC ==
[2023-01-09] MEDS ORDERED: Morphine 4 MG/ML VIAL ONE (15:08)
== END 2023-01-09 15:23 | disposition home or self-care (01) ==
LOC: ERS 13:34
DX: S42.201A Unspecified fracture of upper end of right humerus, initial encounter for closed fracture (principal); E78.5 Hyperlipidemia, unspecified; W05.0XXA Fall from non-moving wheelchair, initial encounter
CPT/HCPCS: 96374; J2270

== ENCOUNTER 2023-01-13 09:25 | Emergency (ER) | payer MEDICARE, BC ==
[2023-01-13] MEDS ORDERED: Baclofen 10 MG TAB PO SCH (10:15)
[2023-01-13] MEDS ORDERED: Morphine 2 MG/ML VIAL SLOW IVP SCH (10:15)
[2023-01-13] MEDS ORDERED: Morphine 2 MG/ML VIAL ONE (10:20)
== END 2023-01-13 11:24 | disposition home or self-care (01) ==
LOC: ERS 09:25
DX: M25.511 Pain in right shoulder (principal); E78.5 Hyperlipidemia, unspecified; W19.XXXA Unspecified fall, initial encounter; Z87.891 Personal history of nicotine dependence
CPT/HCPCS: 96372; 99283; J2272

== ENCOUNTER 2023-02-13 15:33 | Emergency (ER) | payer MEDICARE, BC ==
[2023-02-13] MEDS ORDERED: Acetaminophen 325 MG TAB ONE (16:19)
== END 2023-02-13 17:22 | disposition home or self-care (01) ==
LOC: ERS 15:33
DX: S00.03XA Contusion of scalp, initial encounter (principal); E78.5 Hyperlipidemia, unspecified; W17.89XA Other fall from one level to another, initial encounter; Z87.891 Personal history of nicotine dependence
CPT/HCPCS: 70450

== ENCOUNTER 2023-05-09 20:28 | Emergency (ER) | payer MEDICARE, BC ==
[2023-05-09] MEDS ORDERED: fentaNYL 50 mcg/mL 1 mL Vial ONE (21:01)
== END 2023-05-09 22:06 | disposition home or self-care (01) ==
LOC: ERS 20:28
DX: S09.90XA Unspecified injury of head, initial encounter (principal); S00.03XA Contusion of scalp, initial encounter; S80.211A Abrasion, right knee, initial encounter; M19.90 Unspecified osteoarthritis, unspecified site; G47.00 Insomnia, unspecified; G20 Parkinson's disease; F02.80 Dementia in other diseases classified elsewhere, unspecified severity, without behavioral disturbance, psychotic disturbance, mood disturbance, and anxiety; W18.09XA Striking against other object with subsequent fall, initial encounter; Z87.891 Personal history of nicotine dependence
CPT/HCPCS: 70450; 72125; 72170; 73564; 96374; 99284; J3010

== ENCOUNTER 2023-06-24 20:14 | Emergency (ER) | payer MEDICARE, BC ==
[2023-06-24] MEDS ORDERED: Lidocaine 1% w/Epinephrine 1:100K 20 ML VIAL ONE (20:56)
[2023-06-24] MEDS ORDERED: Boostrix 0.5 ML (Tdap) VIAL (>/=7 yrs of age) ONE (21:59)
== END 2023-06-24 22:44 ==
LOC: ERS 20:14
DX: S81.811A Laceration without foreign body, right lower leg, initial encounter (principal); E78.5 Hyperlipidemia, unspecified; W18.30XA Fall on same level, unspecified, initial encounter; Z87.891 Personal history of nicotine dependence; Z23 Encounter for immunization
CPT/HCPCS: 12032; 90471; 90715

== ENCOUNTER → 2023-06-30 | Day surgery (SDC) | payer MEDICARE, BC | LOC: SPEC 08:42 | PROVIDERS: ATTEND Internal Medicine | DX: N39.0 Urinary tract infection, site not specified (principal) | CPT/HCPCS: 36569 ==

== ENCOUNTER 2023-08-26 17:27 | Emergency (ER) | payer MEDICARE, BC ==
[2023-08-26] MEDS ORDERED: HYDROcodone/Acetaminophen 5/325 mg Tablet ONE (18:51)
[2023-08-26 19:19] LABS: Bacteria/HPF 2+ HPF (None Seen); Bilirubin Negative (Negative); Blood, Urine Negative (Negative); CAUTI Indications for Culture Pelvic or flank pain; Clarity Clear (Clear); Glucose, Urine (Dipstick) Normal (Negative); Ketone, Urine Negative (Negative); Leukocyte 250 Leu/uL (Negative); Nitrite Negative (Negative); Protein, Urine (Dipstick) Negative (Neg-Trace); RBC/HPF 0-3 HPF (0-3); Specific Gravity, Urine 1.007 (1.002-1.036); Squamous Epithelial None Seen HPF (0-3); Urobilinogen Normal mg/dL (Less than 2)
[2023-08-26 19:24] LABS: Urine Culture Reflex Yes Yes
[2023-08-26] MEDS ORDERED: Gabapentin 300 MG CAP ONE (21:21)
[2023-08-26] MEDS ORDERED: Cyclobenzaprine 10 MG TAB ONE (21:55)
== END 2023-08-26 21:33 | disposition home or self-care (01) ==
LOC: ERS 17:27
DX: S22.31XA Fracture of one rib, right side, initial encounter for closed fracture (principal); E78.5 Hyperlipidemia, unspecified; Z87.891 Personal history of nicotine dependence; W19.XXXA Unspecified fall, initial encounter
CPT/HCPCS: 70450; 71046; 71250; 72125; 81001; 87077; 87086; 87186

== ENCOUNTER 2023-10-11 18:52 | Emergency (ER) | payer MEDICARE, BC ==
[2023-10-11] MEDS ORDERED: Acetaminophen 500 MG TAB ONE (19:51)
[2023-10-11 19:52] LABS: #Eosinphils 0.2 thou/uL (0.0-0.7); #Monocytes 0.5 thou/uL (0.11-0.59); #Neutrophils 4.1 thou/uL (1.40-6.50); %Basophils 0.5 % (0.0-1.0); %Eosinophils 2.8 % (0.0-10.0); %Lymphocytes 24.2 % (21.0-51.0); %Monocytes 7.8 % (0.0-10.0); %Neutrophils 64.4 % (42.0-75.0); Hematocrit 36.9 % (36.0-47.0); Hemoglobin 12.6 g/dL (12.0-16.0); Mean Corpuscular HGB CONC 34.1 g/dL (32.0-36.0); Mean Corpuscular Hemoglobin 35.8 pg (27.0-31.0); Mean Corpuscular Volume 104.8 fl (78.0-98.0); Mean Platelet Volume 10.4 fL (7.4-10.4); Platelet Count 147 10x3/uL (130-400); RBC Distribution Width 13.8 % (11.5-14.5); Red Blood Cell (RBC) Count 3.52 mill/uL (4.20-5.40); White Blood Cell (WBC) Count 6.4 10x3/uL (4.8-10.8)
[2023-10-11 20:14] LABS: Anion Gap 15 mmol/L (10-20); BUN (Urea Nitrogen) 13 mg/dL (9.8-20.1); Calc. Creatinine Clearance 0 mL/min (70-130); Calcium 8.9 mg/dL (7.8-10.44); Carbon Dioxide 23 mmol/L (23-31); Chloride 103 mmol/L (98-107); Estimated GFR 82; Glucose 98 mg/dL (83-110); Potassium 3.8 mmol/L (3.5-5.1); Sodium 137 mmol/L (136-145)
[2023-10-11 20:21] LABS: Troponin I Less than 0.010 ng/mL (< 0.028)
== END 2023-10-11 23:52 ==
LOC: ERS 18:52
DX: S00.03XA Contusion of scalp, initial encounter (principal); W22.8XXA Striking against or struck by other objects, initial encounter; Z87.891 Personal history of nicotine dependence
CPT/HCPCS: 36415; 70450; 71045; 72125; 80048; 84484; 85025; 93005

== ENCOUNTER 2023-11-24 09:09 | Emergency (ER) | payer BC, MEDICARE, OTHER ==
[2023-11-24] MEDS ORDERED: Ondansetron PF 4 MG/2 ML Vial ONE (10:18)
[2023-11-24] MEDS ORDERED: Morphine 4 MG/ML VIAL ONE (10:18)
[2023-11-24] MEDS ORDERED: Boostrix 0.5 ML (Tdap) VIAL (>/=7 yrs of age) ONE (10:21)
[2023-11-24 10:23] LABS: #Eosinphils 0.1 thou/uL (0.0-0.7); #Monocytes 0.6 thou/uL (0.11-0.59); #Neutrophils 7.1 thou/uL (1.40-6.50); %Basophils 0.3 % (0.0-1.0); %Eosinophils 1.6 % (0.0-10.0); %Lymphocytes 12.6 % (21.0-51.0); %Monocytes 6.3 % (0.0-10.0); %Neutrophils 78.8 % (42.0-75.0); Hematocrit 34.6 % (36.0-47.0); Hemoglobin 11.5 g/dL (12.0-16.0); Mean Corpuscular HGB CONC 33.2 g/dL (32.0-36.0); Mean Corpuscular Hemoglobin 36.1 pg (27.0-31.0); Mean Corpuscular Volume 108.5 fl (78.0-98.0); Mean Platelet Volume 10.5 fL (7.4-10.4); Platelet Count 165 10x3/uL (130-400); RBC Distribution Width 12.9 % (11.5-14.5); Red Blood Cell (RBC) Count 3.19 mill/uL (4.20-5.40)
[2023-11-24 10:39] LABS: INR-International Normal Ratio 1.1; Prothrombin Time 14.2 sec (12.0-14.7)
[2023-11-24 10:40] LABS: PTT 30.3 sec (22.9-36.1)
[2023-11-24 10:46] LABS: ALT (SGPT) Less than 7 U/L (8-55); AST (SGOT) 20 U/L (5-34); Albumin 3.9 g/dL (3.4-4.8); Alkaline Phosphatase 74 U/L (40-110); Anion Gap 10 mmol/L (10-20); BUN (Urea Nitrogen) 14 mg/dL (9.8-20.1); Bilirubin, Total 0.9 mg/dL (0.2-1.2); Calc. Creatinine Clearance 0 mL/min (70-130); Calcium 8.7 mg/dL (7.8-10.44); Carbon Dioxide 26 mmol/L (23-31); Chloride 104 mmol/L (98-107); Estimated GFR 88; Globulin 2.6 g/dL (2.4-3.5); Glucose 85 mg/dL (83-110); Potassium 3.8 mmol/L (3.5-5.1); Protein, Total 6.5 g/dL (5.8-8.1); Sodium 136 mmol/L (136-145)
[2023-11-24] MEDS ORDERED: Bacitracin 1 PK ONE (13:37)
== END 2023-11-24 15:56 | disposition home or self-care (01) ==
LOC: ERS 09:09
DX: S01.01XA Laceration without foreign body of scalp, initial encounter (principal); M25.511 Pain in right shoulder; M54.6 Pain in thoracic spine; G20.A1 Parkinson's disease without dyskinesia, without mention of fluctuations; W01.198A Fall on same level from slipping, tripping and stumbling with subsequent striking against other object, initial encounter; Z87.891 Personal history of nicotine dependence; Z79.899 Other long term (current) drug therapy
CPT/HCPCS: 12001; 36415; 70450; 71260; 72125; 80053; 85025; 85610; 85730; 90715; 96374; 96375; J2270; J2405

== ENCOUNTER 2023-11-26 13:31 | Emergency (ER) | payer MEDICARE, BC ==
[2023-11-26] MEDS ORDERED: Morphine 4 MG/ML VIAL ONE (14:10)
[2023-11-26] MEDS ORDERED: Ondansetron PF 4 MG/2 ML Vial ONE (14:11)
[2023-11-26] MEDS ORDERED: Lidocaine 4% Patch TD SCH (14:30)
[2023-11-26 14:36] LABS: #Eosinphils 0.1 thou/uL (0.0-0.7); #Monocytes 0.6 thou/uL (0.11-0.59); #Neutrophils 7.4 thou/uL (1.40-6.50); %Basophils 0.2 % (0.0-1.0); %Eosinophils 0.9 % (0.0-10.0); %Lymphocytes 8.5 % (21.0-51.0); %Monocytes 6.7 % (0.0-10.0); %Neutrophils 83.4 % (42.0-75.0); Hematocrit 39.5 % (36.0-47.0); Hemoglobin 13.7 g/dL (12.0-16.0); Mean Corpuscular HGB CONC 34.7 g/dL (32.0-36.0); Mean Corpuscular Hemoglobin 36.1 pg (27.0-31.0); Mean Corpuscular Volume 103.9 fl (78.0-98.0); Mean Platelet Volume 10.7 fL (7.4-10.4); Platelet Count 178 10x3/uL (130-400); RBC Distribution Width 12.6 % (11.5-14.5); White Blood Cell (WBC) Count 8.8 10x3/uL (4.8-10.8)
[2023-11-26 15:04] LABS: ALT (SGPT) Less than 7 U/L (8-55); AST (SGOT) 21 U/L (5-34); Albumin 4.1 g/dL (3.4-4.8); Alkaline Phosphatase 87 U/L (40-110); Anion Gap 13 mmol/L (10-20); BUN (Urea Nitrogen) 13 mg/dL (9.8-20.1); Bilirubin, Total 1.2 mg/dL (0.2-1.2); Calc. Creatinine Clearance 0 mL/min (70-130); Calcium 9.2 mg/dL (7.8-10.44); Carbon Dioxide 28 mmol/L (23-31); Chloride 97 mmol/L (98-107); Estimated GFR 84; Globulin 3.2 g/dL (2.4-3.5); Glucose 108 mg/dL (83-110); Magnesium 1.7 mg/dL (1.6-2.6); Potassium 4.1 mmol/L (3.5-5.1); Protein, Total 7.3 g/dL (5.8-8.1); Sodium 134 mmol/L (136-145)
[2023-11-26 15:13] LABS: Troponin I Less than 0.010 ng/mL (< 0.028)
[2023-11-27] MEDS ORDERED: Transdermal Patch Removal TOP SCH (03:00)
== END 2023-11-26 17:33 ==
LOC: ERS 13:31
DX: S22.31XA Fracture of one rib, right side, initial encounter for closed fracture (principal); J18.9 Pneumonia, unspecified organism; G20.A1 Parkinson's disease without dyskinesia, without mention of fluctuations; W19.XXXA Unspecified fall, initial encounter; Z79.899 Other long term (current) drug therapy; Z87.891 Personal history of nicotine dependence
CPT/HCPCS: 36416; 71045; 71275; 80053; 83735; 84484; 85025; 93005; 96374; 96375; J2270; J2405

== ENCOUNTER 2023-11-27 11:33 | Emergency (ER) | payer MEDICARE, BC ==
[2023-11-27 12:15] LABS: #Eosinphils 0.1 thou/uL (0.0-0.7); #Monocytes 0.7 thou/uL (0.11-0.59); #Neutrophils 6.9 thou/uL (1.40-6.50); %Basophils 0.2 % (0.0-1.0); %Eosinophils 0.9 % (0.0-10.0); %Lymphocytes 11.1 % (21.0-51.0); %Monocytes 8.2 % (0.0-10.0); %Neutrophils 79.1 % (42.0-75.0); Hematocrit 38.8 % (36.0-47.0); Hemoglobin 13.2 g/dL (12.0-16.0); Mean Corpuscular Hemoglobin 36.2 pg (27.0-31.0); Mean Corpuscular Volume 106.3 fl (78.0-98.0); Mean Platelet Volume 10.3 fL (7.4-10.4); Platelet Count 186 10x3/uL (130-400); RBC Distribution Width 12.6 % (11.5-14.5); Red Blood Cell (RBC) Count 3.65 mill/uL (4.20-5.40); White Blood Cell (WBC) Count 8.7 10x3/uL (4.8-10.8)
[2023-11-27 12:38] LABS: ALT (SGPT) Less than 7 U/L (8-55); AST (SGOT) 19 U/L (5-34); Albumin 3.9 g/dL (3.4-4.8); Alkaline Phosphatase 83 U/L (40-110); Anion Gap 12 mmol/L (10-20); BUN (Urea Nitrogen) 18 mg/dL (9.8-20.1); Calc. Creatinine Clearance 0 mL/min (70-130); Calcium 9.2 mg/dL (7.8-10.44); Carbon Dioxide 28 mmol/L (23-31); Chloride 101 mmol/L (98-107); Estimated GFR 85; Glucose 105 mg/dL (83-110); Potassium 4.6 mmol/L (3.5-5.1); Protein, Total 6.9 g/dL (5.8-8.1); Sodium 136 mmol/L (136-145)
[2023-11-27] MEDS ORDERED: Morphine 4 MG/ML VIAL ONE ×2 (12:53→18:39)
[2023-11-27] MEDS ORDERED: Sodium Chloride 0.9% 100 ML ONE (13:25)
[2023-11-27] MEDS ORDERED: cefTRIAXone (ROCEPHIN) 1 GM VIAL ONE (13:26)
[2023-11-27] MEDS ORDERED: metroNIDAZOLE 500 MG (100 mL) BAG ONE (13:26)
== END 2023-11-27 20:08 ==
LOC: ERS 11:33
DX: S22.41XA Multiple fractures of ribs, right side, initial encounter for closed fracture (principal); J18.9 Pneumonia, unspecified organism; G20.A1 Parkinson's disease without dyskinesia, without mention of fluctuations; X58.XXXA Exposure to other specified factors, initial encounter; Z87.891 Personal history of nicotine dependence; Z79.899 Other long term (current) drug therapy
CPT/HCPCS: 36415; 80053; 85025; 93005; 96365; 96367; 96375; 96376; J0696; J2270; J3490

== ENCOUNTER 2024-04-04 18:11 | Emergency (ER) | payer MEDICARE, BC ==
[2024-04-04 19:31] LABS: #Basophils Less than 0.03 10x3/uL (0.0-0.2); %Basophils 0.2 % (0.0-1.0); %Eosinophils 1.5 % (0.0-10.0); %Lymphocytes 25.2 % (21.0-51.0); %Monocytes 6.3 % (0.0-10.0); %Neutrophils 66.6 % (42.0-75.0); Hematocrit 36.4 % (36.0-47.0); Hemoglobin 12.5 g/dL (12.0-16.0); Mean Corpuscular HGB CONC 34.3 g/dL (32.0-36.0); Mean Corpuscular Hemoglobin 36.4 pg (27.0-31.0); Mean Corpuscular Volume 106.1 fL (78.0-98.0); Mean Platelet Volume 10.4 fL (7.4-10.4); Platelet Count 155 10x3/uL (130-400); RBC Distribution Width 13.1 % (11.5-14.5); Red Blood Cell (RBC) Count 3.43 mill/uL (4.20-5.40)
[2024-04-04 19:54] LABS: ALT (SGPT) Less than 5 U/L (8-55); AST (SGOT) 22 U/L (5-34); Alkaline Phosphatase 74 U/L (40-110); Anion Gap 15 mmol/L (10-20); BUN (Urea Nitrogen) 13 mg/dL (9.8-20.1); Bilirubin, Total 0.8 mg/dL (0.2-1.2); Calc. Creatinine Clearance 0 mL/min (70-130); Calcium 9.3 mg/dL (7.8-10.44); Carbon Dioxide 27 mmol/L (23-31); Chloride 99 mmol/L (98-107); Estimated GFR 92; Globulin 2.7 g/dL (2.4-3.5); Glucose 94 mg/dL (83-110); Potassium 3.5 mmol/L (3.5-5.1); Protein, Total 6.7 g/dL (5.8-8.1); Sodium 137 mmol/L (136-145)
[2024-04-04 19:56] LABS: Troponin I 0.034 ng/mL (< 0.028)
[2024-04-04 20:41] LABS: Bilirubin Negative (Negative); Blood, Urine Negative (Negative); CAUTI Indications for Culture Alt mental st,lethar; Clarity Clear (Clear); Glucose, Urine (Dipstick) Normal (Negative); Ketone, Urine Negative (Negative); Leukocyte Negative Leu/uL (Negative); Nitrite Negative (Negative); Protein, Urine (Dipstick) Negative (Neg-Trace); RBC/HPF 0-3 HPF (0-3); Squamous Epithelial 0-3 HPF (0-3); Urobilinogen Normal mg/dL (Less than 2); WBC/HPF 0-3 HPF (0-3)
[2024-04-04 20:42] LABS: Bacteria/HPF 1+ HPF (None Seen)
[2024-04-04 20:43] LABS: Urine Culture Reflex No No
[2024-04-04 22:15] LABS: Troponin I 0.027 ng/mL (< 0.028)
== END 2024-04-04 23:12 | disposition home or self-care (01) ==
LOC: ERS 18:11
DX: S81.819A Laceration without foreign body, unspecified lower leg, initial encounter (principal); S00.83XA Contusion of other part of head, initial encounter; E78.5 Hyperlipidemia, unspecified; Z87.891 Personal history of nicotine dependence; Z79.899 Other long term (current) drug therapy; W19.XXXA Unspecified fall, initial encounter
CPT/HCPCS: 36415; 70450; 71045; 72125; 80053; 81001; 83880; 84484; 85025; 93005

== ENCOUNTER 2025-08-30 11:56 | Inpatient (IN) | payer MEDICARE ==
[~2025-08-30 11:56] MED LIST changes: -Iopamidol-370 76% 500 ML 1 ML ONE; +Iopamidol-370 76% 500 ML MDV (1 ML CHARGE) ONE
[2025-08-30] MEDS ORDERED: Acetaminophen/Codeine 30-300mg Tablet ONE (12:43)
[2025-08-30 12:52] LABS: #Basophils 0.03 10x3/uL (0.0-0.2); #Eosinophils Less than 0.03 10x3/uL (0.0-0.7); #Monocytes 0.33 10x3/uL (0.11-0.59); #Neutrophils 12.38 10x3/uL (1.40-6.50); %Basophils 0.2 % (0.0-1.0); %Eosinophils 0.1 % (0.0-10.0); %Lymphocytes 4.3 % (21.0-51.0); %Monocytes 2.5 % (0.0-10.0); %Neutrophils 92.5 % (42.0-75.0); Hematocrit 41.1 % (36.0-47.0); Hemoglobin 13.3 g/dL (12.0-16.0); Mean Corpuscular Hemoglobin 35.2 pg (27.0-31.0); Mean Corpuscular Volume 108.7 fL (78.0-98.0); Platelet Count 193 10x3/uL (130-400); Red Blood Cell (RBC) Count 3.78 mill/uL (4.20-5.40); White Blood Cell (WBC) Count 13.39 10x3/uL (4.8-10.8)
[2025-08-30 13:16] LABS: ALT (SGPT) Less than 7 U/L (Less than 34); AST (SGOT) 64 U/L (11-34); Albumin 3.6 g/dL (3.1-4.5); Alkaline Phosphatase 130 U/L (40-110); Anion Gap 14 mmol/L (10-20); BUN (Urea Nitrogen) 19 mg/dL (9.8-20.1); Bilirubin, Total 0.8 mg/dL (0.3-1.2); Calc. Creatinine Clearance 0 mL/min (70-130); Calcium 9.4 mg/dL (7.8-10.44); Carbon Dioxide 27 mmol/L (23-31); Chloride 102 mmol/L (98-107); Globulin 2.8 g/dL (2.4-3.5); Glucose 157 mg/dL (83-110); Potassium 3.9 mmol/L (3.5-5.1); Sodium 139 mmol/L (136-145)
[2025-08-30 13:37] LABS: Bacteria/HPF 3+ HPF (None Seen); CAUTI Indications for Culture Pelvic or flank pain; Specific Gravity, Urine 1.026 (1.002-1.036); WBC/HPF Greater than 50 HPF (0-3)
[2025-08-30 13:38] LABS: Glucose, Urine (Dipstick) Unable to Interpret mg/dL (Negative); Leukocyte Unable to Interpret Leu/uL (Negative); Protein, Urine (Dipstick) Unable to Interpret mg/dL (Neg-Trace)
[2025-08-30 13:39] LABS: Urine Culture Reflex Yes Yes
[2025-08-30] MEDS ORDERED: Cefepime 2 GM VIAL ONE (14:03)
[2025-08-30] MEDS ORDERED: Electrolyte Replacement Protocol 1 EACH FS SCH (15:15)
[2025-08-30] MEDS ORDERED: Potassium Chloride 20 MEQ in Premix 1 BAG IVPB PRN (15:30)
[2025-08-30] MEDS ORDERED: Magnesium 2 GM/50 ML(in water) 2 GM in Premix 1 BAG IVPB PRN (15:30)
[2025-08-30] MEDS ORDERED: PHOS-NAK 1 PKT PACK PO PRN (15:30)
[2025-08-30 18:14] VITALS: BMI 21.0
[2025-08-30 18:48] LABS: #Basophils Less than 0.03 10x3/uL (0.0-0.2); #Eosinophils Less than 0.03 10x3/uL (0.0-0.7); #Monocytes 0.50 10x3/uL (0.11-0.59); #Neutrophils 12.34 10x3/uL (1.40-6.50); %Basophils 0.1 % (0.0-1.0); %Eosinophils 0.1 % (0.0-10.0); %Lymphocytes 3.0 % (21.0-51.0); %Monocytes 3.8 % (0.0-10.0); %Neutrophils 92.5 % (42.0-75.0); Hematocrit 38.0 % (36.0-47.0); Hemoglobin 12.7 g/dL (12.0-16.0); Mean Corpuscular Hemoglobin 35.4 pg (27.0-31.0); Mean Corpuscular Volume 105.8 fL (78.0-98.0); Platelet Count 150 10x3/uL (130-400); Red Blood Cell (RBC) Count 3.59 mill/uL (4.20-5.40); White Blood Cell (WBC) Count 13.32 10x3/uL (4.8-10.8)
[2025-08-30 19:07] LABS: ALT (SGPT) Less than 7 U/L (Less than 34); AST (SGOT) 28 U/L (11-34); Albumin 3.3 g/dL (3.1-4.5); Alkaline Phosphatase 111 U/L (40-110); Anion Gap 14 mmol/L (10-20); BUN (Urea Nitrogen) 18 mg/dL (9.8-20.1); Bilirubin, Total 0.8 mg/dL (0.3-1.2); Calc. Creatinine Clearance 68 mL/min (70-130); Calcium 8.5 mg/dL (7.8-10.44); Carbon Dioxide 24 mmol/L (23-31); Chloride 104 mmol/L (98-107); Globulin 2.7 g/dL (2.4-3.5); Glucose 134 mg/dL (83-110); Potassium 4.0 mmol/L (3.5-5.1); Sodium 138 mmol/L (136-145)
[2025-08-30] MEDS: Famotidine 20 MG TAB PO SCH (22:02)
[2025-08-31 04:26] LABS: #Basophils Less than 0.03 10x3/uL (0.0-0.2); #Eosinophils Less than 0.03 10x3/uL (0.0-0.7); #Monocytes 0.73 10x3/uL (0.11-0.59); #Neutrophils 12.37 10x3/uL (1.40-6.50); %Basophils 0.1 % (0.0-1.0); %Eosinophils 0.1 % (0.0-10.0); %Lymphocytes 5.8 % (21.0-51.0); %Monocytes 5.2 % (0.0-10.0); %Neutrophils 88.6 % (42.0-75.0); Hematocrit 37.3 % (36.0-47.0); Hemoglobin 12.3 g/dL (12.0-16.0); Mean Corpuscular Hemoglobin 35.5 pg (27.0-31.0); Mean Corpuscular Volume 107.8 fL (78.0-98.0); Platelet Count 166 10x3/uL (130-400); Red Blood Cell (RBC) Count 3.46 mill/uL (4.20-5.40); White Blood Cell (WBC) Count 13.97 10x3/uL (4.8-10.8)
[2025-08-31 04:37] LABS: ALT (SGPT) Less than 7 U/L (Less than 34); AST (SGOT) 22 U/L (11-34); Albumin 3.1 g/dL (3.1-4.5); Alkaline Phosphatase 102 U/L (40-110); Anion Gap 12 mmol/L (10-20); BUN (Urea Nitrogen) 19 mg/dL (9.8-20.1); Bilirubin, Total 1.1 mg/dL (0.3-1.2); Calc. Creatinine Clearance 63 mL/min (70-130); Calcium 8.5 mg/dL (7.8-10.44); Carbon Dioxide 24 mmol/L (23-31); Chloride 103 mmol/L (98-107); Globulin 2.7 g/dL (2.4-3.5); Glucose 117 mg/dL (83-110); Potassium 4.2 mmol/L (3.5-5.1); Sodium 135 mmol/L (136-145)
[2025-08-31] MEDS: Enoxaparin 40 MG (0.4 mL) SYRINGE SC SCH (05:35)
[2025-08-31] MEDS: Pantoprazole 40 MG VIAL IVP SCH (05:49)
[2025-08-31 08:58] LABS: Hematocrit 35.1 % (36.0-47.0); Hemoglobin 11.7 g/dL (12.0-16.0)
[2025-08-31] MEDS: Pregabalin 25 MG CAP PO SCH (09:39)
[2025-08-31] MEDS: Vancomycin 1.25 GM / NS 250 ML VIAL-2-BAG IVPB SCH (12:45)
[2025-08-31 14:17] VITALS: BMI 21.0
[2025-08-31] MEDS: LEVODOPA PER TUBE SCH (16:44)
[2025-08-31] MEDS: CARBIDOPA PER TUBE SCH (16:44)
[2025-08-31 18:13] LABS: Bacteria/HPF 1+ HPF (None Seen); CAUTI Indications for Culture Acute Hematuria; Glucose, Urine (Dipstick) Normal (Negative); Leukocyte 250 Leu/uL (Negative); Protein, Urine (Dipstick) 30 mg/dL (Neg-Trace); RBC/HPF 0-3 HPF (0-3); Specific Gravity, Urine 1.033 (1.002-1.036); WBC/HPF 21-50 HPF (0-3)
[2025-08-31 18:15] LABS: Urine Culture Reflex Yes Yes
[2025-08-31] MEDS ORDERED: Vancomycin 1 GM in Sodium Chloride 0.9% 250 ML 250 ML IVPB SCH (21:00)
[2025-09-01 07:20] LABS: Vancomycin, Random 19.1 ug/mL (See Comment)
[2025-09-02 04:26] LABS: #Basophils Less than 0.03 10x3/uL (0.0-0.2); #Eosinophils 0.14 10x3/uL (0.0-0.7); #Monocytes 0.52 10x3/uL (0.11-0.59); #Neutrophils 6.33 10x3/uL (1.40-6.50); %Basophils 0.2 % (0.0-1.0); %Eosinophils 1.6 % (0.0-10.0); %Lymphocytes 18.2 % (21.0-51.0); %Monocytes 6.0 % (0.0-10.0); %Neutrophils 73.7 % (42.0-75.0); Hematocrit 34.3 % (36.0-47.0); Hemoglobin 11.5 g/dL (12.0-16.0); Mean Corpuscular Hemoglobin 35.1 pg (27.0-31.0); Mean Corpuscular Volume 104.6 fL (78.0-98.0); Platelet Count 156 10x3/uL (130-400); Red Blood Cell (RBC) Count 3.28 mill/uL (4.20-5.40); White Blood Cell (WBC) Count 8.61 10x3/uL (4.8-10.8)
[2025-09-02 05:24] LABS: ALT (SGPT) Less than 7 U/L (Less than 34); AST (SGOT) 29 U/L (11-34); Albumin 3.0 g/dL (3.1-4.5); Alkaline Phosphatase 85 U/L (40-110); Anion Gap 12 mmol/L (10-20); BUN (Urea Nitrogen) 14 mg/dL (9.8-20.1); Bilirubin, Total 0.4 mg/dL (0.3-1.2); Calc. Creatinine Clearance 73 mL/min (70-130); Calcium 8.5 mg/dL (7.8-10.44); Carbon Dioxide 26 mmol/L (23-31); Chloride 101 mmol/L (98-107); Globulin 3.0 g/dL (2.4-3.5); Glucose 94 mg/dL (83-110); Potassium 3.9 mmol/L (3.5-5.1); Sodium 135 mmol/L (136-145)
[2025-09-02] MEDS: Vancomycin 1 GM in Premix 1 BAG IVPB SCH ×2 (15:55→16:15)
[2025-09-02] MEDS: Melatonin 3 MG TAB PO PRN (21:25)
[2025-09-02] MEDS: Acetaminophen 325 MG TAB PO PRN (21:25)
[2025-09-03] MEDS: Vancomycin 1 GM/200 ML (FROZEN) BAG ONE ×2 (03:00)
[2025-09-03 05:00] LABS: Calc. Creatinine Clearance 83.0 mL/min (70-130); Vancomycin, Random 23.1 ug/mL (See Comment)
[2025-09-05 05:38] LABS: #Basophils 0.04 10x3/uL (0.0-0.2); #Eosinophils 0.18 10x3/uL (0.0-0.7); #Monocytes 0.64 10x3/uL (0.11-0.59); #Neutrophils 3.65 10x3/uL (1.40-6.50); %Basophils 0.6 % (0.0-1.0); %Eosinophils 2.9 % (0.0-10.0); %Lymphocytes 27.3 % (21.0-51.0); %Monocytes 10.2 % (0.0-10.0); %Neutrophils 58.2 % (42.0-75.0); Hematocrit 36.0 % (36.0-47.0); Hemoglobin 12.2 g/dL (12.0-16.0); Mean Corpuscular Hemoglobin 35.4 pg (27.0-31.0); Mean Corpuscular Volume 104.3 fL (78.0-98.0); Platelet Count 207 10x3/uL (130-400); Red Blood Cell (RBC) Count 3.45 mill/uL (4.20-5.40); White Blood Cell (WBC) Count 6.27 10x3/uL (4.8-10.8)
[2025-09-05 05:54] LABS: Vancomycin, Random 21.8 ug/mL (See Comment)
[2025-09-05 05:57] LABS: ALT (SGPT) Less than 7 U/L (Less than 34); AST (SGOT) 53 U/L (11-34); Albumin 3.2 g/dL (3.1-4.5); Alkaline Phosphatase 87 U/L (40-110); Anion Gap 12 mmol/L (10-20); BUN (Urea Nitrogen) 20 mg/dL (9.8-20.1); Bilirubin, Total 0.5 mg/dL (0.3-1.2); Calc. Creatinine Clearance 73 mL/min (70-130); Calcium 9.1 mg/dL (7.8-10.44); Carbon Dioxide 28 mmol/L (23-31); Chloride 99 mmol/L (98-107); Globulin 3.2 g/dL (2.4-3.5); Glucose 95 mg/dL (83-110); Potassium 4.3 mmol/L (3.5-5.1); Sodium 135 mmol/L (136-145)
[2025-09-05 11:43] LABS: Vancomycin, Random 22.9 ug/mL (See Comment)
[2025-09-05] MEDS ORDERED: Vancomycin 1 GM in Premix 1 BAG IVPB SCH (20:00)
[2025-09-06 06:05] LABS: Calc. Creatinine Clearance 65.0 mL/min (70-130); Vancomycin, Random 21.9 ug/mL (See Comment)
[2025-09-06] MEDS: Vancomycin 1 GM in Premix 1 BAG IVPB SCH (20:43)
[2025-09-07 08:49] LABS: #Basophils 0.03 10x3/uL (0.0-0.2); #Eosinophils 0.12 10x3/uL (0.0-0.7); #Monocytes 0.54 10x3/uL (0.11-0.59); #Neutrophils 3.85 10x3/uL (1.40-6.50); %Basophils 0.5 % (0.0-1.0); %Eosinophils 2.1 % (0.0-10.0); %Lymphocytes 21.6 % (21.0-51.0); %Monocytes 9.3 % (0.0-10.0); %Neutrophils 66.0 % (42.0-75.0); Hematocrit 37.2 % (36.0-47.0); Hemoglobin 12.2 g/dL (12.0-16.0); Mean Corpuscular Hemoglobin 34.9 pg (27.0-31.0); Mean Corpuscular Volume 106.3 fL (78.0-98.0); Platelet Count 245 10x3/uL (130-400); Red Blood Cell (RBC) Count 3.50 mill/uL (4.20-5.40); White Blood Cell (WBC) Count 5.83 10x3/uL (4.8-10.8)
[2025-09-08 08:41] VITALS: TEMP 97.8
[2025-09-08] MEDS: Vancomycin 1 GM in Premix 1 BAG IVPB SCH (18:33)
[2025-09-08 20:31] VITALS: BP 130/83
== END 2025-09-08 22:00 | disposition home or self-care (01) | DRG 698 ==
LOC: ERS 11:56 → 2NO 15:05 → T4-B 09-04 16:40
PROVIDERS: ADMIT Student in an Organized Health Care Education/Training Program; ATTEND Internal Medicine
PROC: 3E03329 Introduction of Other Anti-infective into Peripheral Vein, Percutaneous Approach (ICD-10-PCS; 2025-08-30)
PROC: 05HY33Z Insertion of Infusion Device into Upper Vein, Percutaneous Approach (ICD-10-PCS; principal; 2025-09-07)
DX: T83.511A Infection and inflammatory reaction due to indwelling urethral catheter, initial encounter (principal); A41.51 Sepsis due to Escherichia coli [E. coli]; A41.81 Sepsis due to Enterococcus; E44.0 Moderate protein-calorie malnutrition; Z16.12 Extended spectrum beta lactamase (ESBL) resistance; E87.20 Acidosis, unspecified; N39.0 Urinary tract infection, site not specified; K52.9 Noninfective gastroenteritis and colitis, unspecified; E78.5 Hyperlipidemia, unspecified; G20.A1 Parkinson's disease without dyskinesia, without mention of fluctuations; M85.80 Other specified disorders of bone density and structure, unspecified site; G89.29 Other chronic pain; Z85.3 Personal history of malignant neoplasm of breast; Z96.651 Presence of right artificial knee joint; Z90.12 Acquired absence of left breast and nipple; Z98.1 Arthrodesis status; F32.A Depression, unspecified; Z87.891 Personal history of nicotine dependence; Z88.2 Allergy status to sulfonamides; I10 Essential (primary) hypertension; J30.2 Other seasonal allergic rhinitis; N31.9 Neuromuscular dysfunction of bladder, unspecified; G62.9 Polyneuropathy, unspecified; Z68.21 Body mass index [BMI] 21.0-21.9, adult; Y84.6 Urinary catheterization as the cause of abnormal reaction of the patient, or of later complication, without mention of misadventure at the time of the procedure; R47.1 Dysarthria and anarthria; Z79.899 Other long term (current) drug therapy; R31.9 Hematuria, unspecified
CPT/HCPCS: 36415; 36416; 51701; 74177; 80053; 80202; 81001; 82565; 83605; 85025; 87040; 87077; 87086; 87149; 87186; 93306; 94760; 96365; J0692; J1650; J2185; J2470; J2543; J3373; J7050; J7120; Q0162; Q9967